=== PATIENT | female | born 2000 | race Caucasian/White ===

== ENCOUNTER → 2023-05-22 10:10 | Outpatient (BNVA) | payer OTHER, SELFPAY | PROVIDERS: Visit Provider Physician Assistant Surgical ==

== ENCOUNTER 2023-06-23 10:49 | Outpatient (AMB) | payer OTHER, SELFPAY ==
--- NOTE | 2023-06-23 10:50 | A.OFFVIS_ITS ---
Intake VS Expanded 06/23/23 11:02 BP 125/65 Blood Pressure Location Rt brachial Blood Pressure Position Sitting Pulse 90 Pulse Source Pulse Oximeter Temp 96.4 F L Temperature Source Tympanic Pulse Oximetry 97 Oxygen Delivery Method Room Air Height 5 ft 1.5 in Weight 280 lb BMI 52.0 Body Fat % 48.3 Body Fat Mass 13.4 Fat Free Mass 144.6 Visceral Fat Rating 15.0 Body Water % 37.2 Body Water Mass 104.0 Muscle Mass/Score 137.4 Basal Metabolic Rate/Score 2,113 Intake Visit Reasons: (OV) [employer] BMI 52.6 Allergies No Known Allergies Allergy (Verified 05/22/23 11:06) Medication List - Last Reconciled 06/23/23 by Sindhu Chaves PA-C No Known Home Meds HPI HPI Comments History of Present Illness Details This is a 23 year old woman who came today to receive gastric band. She thought that we offered this serivce and is her to gather information about her options. Her goal is to loose weight. She reports first being concerned about her weight 3years, has always been overweight She lives with her and her 3 children ages 3,4 and 5. She is unemlployed. She wakes at: 7am, bed at 11 pm Breakfast: skips everyday, no liquids either Lunch: 1pm - chicken with fries, from take out. Apple juice or Coke or water Eats large portions at meals Dinner: 7pm - take out 3 d/ week, rice, meat vegetables 1-2 times per week. does the cooking. Water or Soda After dinner: none Other snacks: no snacks Liquids: drinks soda and juice daily Alcohol intake: none, tobacco: none, marijuana: none Exercise: treadmill and elliptical at home - last use1 month ago Last mammogram: never too young Last pap smear: up to date control method: none used GRACIA: 4 ESS:4 GERD4: QOL:102 PFSH Surgical History Hx of tonsillectomy Hx of wisdom tooth extraction Hx of appendectomy Social History Alcohol intake: never Patient Tobacco Use Status: Never used Tobacco Physical Exam Vital Signs: Last Vital Signs Temp 96.4 F L 06/23/23 11:02 Pulse 90 06/23/23 11:02 BP 125/65 06/23/23 11:02 Pulse Ox 97 06/23/23 11:02 Oxygen Delivery Method Room Air 06/23/23 11:02 BMI result Body Mass Index 52.0 Const General: cooperative, no acute distress and well developed Nutritional Appearance: obese Orientation/consciousness: patient oriented x3 HEENT Head: Yes normal to inspection Neck Neck: Yes normal visual inspection Thyroid: Thyroid normal Resp Effort & Inspection: normal respiratory effort Auscultation: clear to auscultation bilaterally Cardio Rate: regular rate Rhythm: regular rhythm Heart sounds: S1 normal heart sound present, S2 normal heart sound present and no murmurs GI Inspection: No distended, Yes obesity and Yes scar (lap appy scars) Palpation (GI): Soft to palpation, nontender and no guarding Skin General skin exam: no rashes or lesions noted and other (warm and dry) Wounds: no wounds Hair: normal Neuro General: patient oriented x3 Extrem General: Yes no pedal edema and Yes no calf tenderness Psych Attitude: cooperative Thought process: Normal thought process present Thought content: Normal thought content present Insight: Good insight present (Psych) Judgement: Good judgement present (Psych) Assessment & Plan Assessment & Plan (1) Morbid obesity: Code(s): E66.01 - Morbid (severe) obesity due to excess calories Plan: This is a 23 yo woman with morbid obesity who wants to discuss her options for weight loss surgery with her and will call us back if interested. I gave her my card and gave her the following information. Stop all soda, juice and take out foofds. Eat 3 meals per day of healthy portions. Start treadmill or elliptical to burn 350 calories at least 4 d/week. Will need a reliable contraceptive method to be in our SWLprogram. Patient is morbidly obese and is not considered stable at this time.?I spent a t otal of 45 minutes reviewing/updating records, examining the patient and counseling the patient on weight management as detailed above. (2) Anxiety and depression: Code(s): F41.9 - Anxiety disorder, unspecified; F32.A - Depression, unspecified (3) Pre-op evaluation: Code(s): Z01.818 - Encounter for other preprocedural examination Coding Level of Care Code New Pt Level 5 (11850) Diagnoses Morbid obesity E66.01 Anxiety and depression F41.9; F32.A Pre-op evaluation Z01.818
[2023-06-23 11:02] VITALS: BP 125/65; PULSE 90; TEMP 35.8; O2SAT 97; BMI 52.0
== END 2023-06-23 12:21 | disposition home or self-care (01) ==
PROVIDERS: Visit Provider Physician Assistant
DX: E66.01 Morbid (severe) obesity due to excess calories (principal); Z68.43 Body mass index [BMI] 50.0-59.9, adult
CPT/HCPCS: 99204

== ENCOUNTER → 2023-06-23 10:49 | Outpatient (BNVA) | payer OTHER, SELFPAY | PROVIDERS: Visit Provider Physician Assistant | DX: Z01.818 Encounter for other preprocedural examination (principal); E66.01 Morbid (severe) obesity due to excess calories; F41.9 Anxiety disorder, unspecified; F32.A Depression, unspecified; Z68.43 Body mass index [BMI] 50.0-59.9, adult | CPT/HCPCS: 99202 ==